=== PATIENT | female | born 1960 | race Caucasian/White ===

== ENCOUNTER 2022-06-12 08:49 | Emergency (ER) | payer OTHER, SELFPAY ==
[2022-06-12] VITALS (17 sets, daily range): BP systolic 109–129; BP diastolic 61–79; PULSE 62–78; RESP 18; TEMP 36.7; O2SAT 95–98; BMI 24.6
--- NOTE | 2022-06-12 09:35 | ED_ITS ---
HPI - General Adult General Date Seen: 06/12/22 Chief complaint: Arrhythmia/Palpitations Stated complaint: shortness of breath, fluttering heart Time Seen by Provider: 06/12/22 09:03 Source: patient Mode of arrival: ambulatory Limitations: no limitations History of Present Illness HPI narrative: Patient is a 62-year-old woman who presents for evaluation of a 5 day history of nonspecific heart fluttering and shortness of breath. She says that these symptoms are present concurrently, but are not present now. She says otherwise she feels like they been consistent all week, both during the day and at night. Not necessarily worsened with exertion, she denies chest pain. She says she feels like her heart just has been fluttery, not necessarily irregular, not fast. She says that it feels like it might be about to go fast but has not actually been fast. She says she has a history of nonspecific tachycardia so she knows what that feels like and she has not had anything like that. She says she has a history of ?tachycardia, not otherwise specified, and used to be on medication for it but not for quite some time. She does not recognize the terms atrial fibrillation, flutter, or SVT. She has had a stent placed previously. She denies fever or cough, no lower extremity swelling or pain. Now she is asymptomatic Related Data Home Medications Medication Instructions Recorded Confirmed aspirin 81 mg capsule 81 mg PO DAILY 06/12/22 06/12/22 atorvastatin 80 mg tablet 80 mg PO DAILY 06/12/22 06/12/22 cholecalciferol (vitamin D3) 50 50 mcg PO DAILY 06/12/22 06/12/22 mcg (2,000 unit) capsule (Vitamin D3) fluoxetine 20 mg capsule 60 mg PO DAILY 06/12/22 06/12/22 metoprolol tartrate 25 mg tablet 25 mg PO DAILY 06/12/22 06/12/22 Allergies Allergy/AdvReac Type Severity Reaction Status Date / Time amoxicillin [From Augmentin] Allergy Vomiting Verified 06/12/22 09:11 clavulanic acid Allergy Vomiting Verified 06/12/22 09:11 [From Augmentin] codeine Allergy Nausea Verified 06/12/22 09:11 Review of Systems Status of ROS: Reports: 10 or more systems reviewed and unremarkable except as noted in History and below [facility] Social History Smoking Status: Current every day smoker What tobacco products do you use: cigarettes Smoking packs per day: 0.5 Smoking cigarettes per day: 10.0 Do you use any of these nicotine containing products: None Second hand tobacco smoke exposure: No How often do you have a drink containing alcohol: 2-4 times a month How many standard drinks containing alcohol do you have on a typical day: 1 or 2 How often do you have six or more drinks on one occasion: Never AUDIT-C Alcohol total score: 2 Non-prescribed substance use: denies use Exam Narrative: Exam Narrative: Vital signs as noted above. In general, an alert, well-appearing patient. Head: Normocephalic, atraumatic. Eyes: Pupils are equal reactive. Extraocular movements are full. Conjunctivae are normal. ENT: Mucous membranes are moist. Throat is normal. Neck: Supple without lymphadenopathy. Heart: Regular rate and rhythm. No murmur or rub. Lungs: Clear bilaterally. No increased work of breathing, crackles or wheezes. Abdomen: Soft and nontender. No organomegaly. Extremities: Well perfused. No edema. No calf tenderness. Pulses intact. Neurologic: Patient is alert and oriented to person and place. Speech is fluent. Face is symmetric. Moves all extremities equally. Affect: Normal. Skin: Warm and dry. Well perfused. Const: Vital Signs, click to edit/add: Vital Signs - 24 hr 06/12/22 09:02 06/12/22 09:08 06/12/22 09:30 Temperature 98.1 F Pulse Rate 69 Pulse Rate [Pulse Oximeter] 72 Respiratory Rate 18 Blood Pressure Blood Pressure [Le ft Upper Arm] 129/79 Pulse Oximetry 96 96 96 Oxygen Delivery Me thod Room Air 06/12/22 09:32 06/12/22 10:00 06/12/22 10:02 Temperature Pulse Rate 78 66 71 Pulse Rate [Pulse Oximeter] Respiratory Rate Blood Pressure 119/69 126/69 Blood Pressure [Le ft Upper Arm] Pulse Oximetry 96 96 97 Oxygen Delivery Me thod 06/12/22 10:30 06/12/22 10:32 06/12/22 11:00 Temperature Pulse Rate 65 64 62 Pulse Rate [Pulse Oximeter] Respiratory Rate Blood Pressure 109/77 Blood Pressure [Le ft Upper Arm] Pulse Oximetry 95 97 96 Oxygen Delivery Me thod 06/12/22 11:02 06/12/22 11:36 06/12/22 11:37 Temperature Pulse Rate 64 65 62 Pulse Rate [Pulse Oximeter] Respiratory Rate Blood Pressure 125/66 114/63 Blood Pressure [Le ft Upper Arm] Pulse Oximetry 97 96 97 Oxygen Delivery Me thod 06/12/22 12:00 06/12/22 12:02 06/12/22 12:30 Temperature Pulse Rate 63 63 64 Pulse Rate [Pulse Oximeter] Respiratory Rate Blood Pressure 125/61 Blood Pressure [Le ft Upper Arm] Pulse Oximetry 97 96 97 Oxygen Delivery Me thod 06/12/22 12:32 06/12/22 12:52 Temperature 98.1 F Pulse Rate 65 Pulse Rate [Pulse Oximeter] 72 Respiratory Rate 18 Blood Pressure 120/74 Blood Pressure [Le ft Upper Arm] 129/79 Pulse Oximetry 98 Oxygen Delivery Me thod Course Course Hospital Course: On arrival, she was maintained on the monitor and oximetry. She had an EKG which shows a normal sinus rhythm, ventricular rate of 72 beats per minute. She has a QT corrected of 427 milliseconds. MS is normal at [address] segment changes. T-waves are normal. Right now, I do not see anything to suggest an arrhythmia or predisposition to arrhythmia. Will go ahead and check some blood work and keep her on the monitor. Patient was asymptomatic throughout her time in the ER. No a arrhythmias and no symptoms. Her labs were really unremarkable, white blood cell count was normal, hemoglobin 12.4. D-dimer was 0.38 so I did a chest x-ray which by my review was unremarkable. Final radiology report was read as no acute pathology. Electrolytes were entirely within normal limits, creatinine was 0.7. LFTs were normal, CRP was less than 0.5. BNP was 56. TSH was normal. COVID was negative. Point of care troponin was 0. She feels comfortable going home. I am going to set her up with a Holter him will see if she has any ectopy or arrhythmias at home. I would like her follow-up with her primary doctor next week for recheck and results of the Holter. If at any time she has severe symptoms, new symptoms such as chest pain or syncope, return to the emergency department. Vital Signs Vital signs: Initial Vital Signs Temperature 98.1 F 06/12/22 09:02 Temperature Source Temporal Artery Scan 06/12/22 09:02 Pulse Rate 72 06/12/22 09:02 Respiratory Rate 18 06/12/22 09:02 Blood Pressure 129/79 06/12/22 09:02 Blood Pressure Mean 95 06/12/22 09:02 Blood Pressure Position Semi-Fowlers 06/12/22 09:02 Pulse Oximetry 96 06/12/22 09:02 Oxygen Delivery Method 06/12/22 09:02 Vital Signs Temperature 98.1 F 06/12/22 09:02 Pulse Rate 72 06/12/22 09:02 Respiratory Rate 18 06/12/22 09:02 Blood Pressure 129/79 06/12/22 09:02 Pulse Oximetry 96 06/12/22 09:02 Oxygen Delivery Method 06/12/22 09:02 Temperature 98.1 F 06/12/22 12:52 Pulse Rate 72 06/12/22 12:52 Respiratory Rate 18 06/12/22 12:52 Blood Pressure 129/79 06/12/22 12:52 Pulse Oximetry 98 06/12/22 12:32 Oxygen Delivery Method 06/12/22 09:02 Medical Decision Making Lab Data Labs: Lab Results 06/12/22 06/12/22 06/12/22 Range/Units 09:35 09:35 09:45 WBC 7.52 (4.50-11.00) K/uL RBC 4.14 (4.00-5.20) m/uL Hgb 12.4 (12.0-16.0) gm/dL Hct 37.7 (33.0-51.0) % MCV 91 (80-100) fL MCH 30 (26-34) pg MCHC 33 (32-36) gm/dL RDW Coeff of Claus 12.9 (11.5-15.5) % Plt Count 405 (140-440) K/uL Neut % (Auto) 59.4 (42.0-72.0) % Lymph % (Auto) 31.5 (20-44) % [place] % (Auto) 6.0 (0.0-11.0) % Eos % (Auto) 2.5 (0.0-7.0) % Baso % (Auto) 0.5 (0.0-3.0) % Neut # (Auto) 4.46 (1.7-7.0) K/uL Lymph # (Auto) 2.37 (0.90-2.90) K/uL [place] # (Auto) 0.50 (0.00-0.90) K/UL Eos # (Auto) 0.19 (0.00-0.50) K/uL Baso # (Auto) 0.04 (0.00-0.30) K/uL D-Dimer Quant (PE/DVT) 0.38 (0.00-0.50) ug/ml Sodium (135-149) mmol/L Potassium (3.6-5.1) mmol/L Chloride (96-114) mmol/L Carbon Dioxide (20-32) mmol/L BUN (7-30) mg/dL Creatinine (0.5-1.5) mg/dL Estimated Creat Clear Estimated GFR ml/min Glucose (60-115) mg/dL Calcium (8.4-10.6) mg/dL Total Bilirubin (0.1-1.5) mg/dL Direct Bilirubin (0.0-0.5) mg/dL AST (12-35) U/L ALT (4-35) U/L Alkaline Phosphatase (40-150) U/L C-Reactive Protein (0.5-1.0) mg/dL NT-Pro-B Natriuret Pep pg/mL Total Protein (6.0-8.3) g/dL Albumin (3.3-5.0) g/dL TSH (0.270-4.200) uIU/mL SARS-CoV-2 (PCR) (Negative) POC Troponin I 0.00 L (0.01-0.04) ng/ml 06/12/22 06/12/22 06/12/22 Range/Units 09:45 09:45 09:45 WBC (4.50-11.00) K/uL RBC (4.00-5.20) m/uL Hgb (12.0-16.0) gm/dL Hct (33.0-51.0) % MCV (80-100) fL MCH (26-34) pg MCHC (32-36) gm/dL RDW Coeff of Claus (11.5-15.5) % Plt Count (140-440) K/uL Neut % (Auto) (42.0-72.0) % Lymph % (Auto) (20-44) % [place] % (Auto) (0.0-11.0) % Eos % (Auto) (0.0-7.0) % Baso % (Auto) (0.0-3.0) % Neut # (Auto) (1.7-7.0) K/uL Lymph # (Auto) (0.90-2.90) K/uL [place] # (Auto) (0.00-0.90) K/UL Eos # (Auto) (0.00-0.50) K/uL Baso # (Auto) (0.00-0.30) K/uL D-Dimer Quant (PE/DVT) (0.00-0.50) ug/ml Sodium 138 (135-149) mmol/L Potassium 4.1 (3.6-5.1) mmol/L Chloride 108 (96-114) mmol/L Carbon Dioxide 26 (20-32) mmol/L BUN 11 (7-30) mg/dL Creatinine 0.7 (0.5-1.5) mg/dL Estimated Creat Clear 44.02 Estimated GFR 98 ml/min Glucose 100 (60-115) mg/dL Calcium 8.9 (8.4-10.6) mg/dL Total Bilirubin 0.5 (0.1-1.5) mg/dL Direct Bilirubin 0.2 (0.0-0.5) mg/dL AST 27 (12-35) U/L ALT 25 (4-35) U/L Alkaline Phosphatase 74 (40-150) U/L C-Reactive Protein < 0.5 L (0.5-1.0) mg/dL NT-Pro-B Natriuret Pep 56 pg/mL Total Protein 6.5 (6.0-8.3) g/dL Albumin 3.9 (3.3-5.0) g/dL TSH 0.875 (0.270-4.200) uIU/mL SARS-CoV-2 (PCR) Negative SARS-CoV-2 (Negative) POC Troponin I (0.01-0.04) ng/ml Discharge Plan Discharge Clinical Impression: Shortness of breath, Palpitations Patient Disposition: Home, Self-Care Condition: Improved Instructions: Heart Palpitations (ED) Additional Instructions: Wear Holter monitor. Then primary care follow-up next week for recheck. If you have severe symptoms, new symptoms such as chest pain, fainting, return for re- evaluation. Prescriptions: No Action atorvastatin 80 mg tablet 80 mg PO DAILY cholecalciferol (vitamin D3) [Vitamin D3] 50 mcg (2,000 unit) capsule 50 mcg PO DAILY fluoxetine 20 mg capsule 60 mg PO DAILY metoprolol tartrate 25 mg tablet 25 mg PO DAILY aspirin 81 mg capsule 81 mg PO DAILY Stand Alone Forms: [employer] Info Instructions
[2022-06-12 09:51] LABS: Basophils Absolute Auto 0.04 K/uL (0.00-0.30); Basophils Percent Auto 0.5 % (0.0-3.0); Eosinophils Absolute Auto 0.19 K/uL (0.00-0.50); Eosinophils Percent Auto 2.5 % (0.0-7.0); Hematocrit 37.7 % (33.0-51.0); Hemoglobin* 12.4 gm/dL (12.0-16.0); Immature Granulocytes Abs Auto 0.01 K/uL (0.00-0.30); Immature Granulocytes Pct Auto 0.1 %; Lymphocytes Absolute Auto 2.37 K/uL (0.90-2.90); Lymphocytes Percent Auto 31.5 % (20-44); Mean Corpuscular HGB Conc 33 gm/dL (32-36); Mean Corpuscular Hemoglobin 30 pg (26-34); Mean Corpuscular Volume 91 fL (80-100); Neutrophils Absolute Auto 4.46 K/uL (1.7-7.0); Neutrophils Percent Auto 59.4 % (42.0-72.0); Platelet Count* 405 K/uL (140-440); RDW Coefficient of Variation % 12.9 % (11.5-15.5); Red Blood Count 4.14 m/uL (4.00-5.20); White Blood Count* 7.52 K/uL (4.50-11.00)
[2022-06-12 09:59] LABS: Slide Review Reflex No
[2022-06-12 10:16] LABS: Albumin* 3.9 g/dL (3.3-5.0); Chloride* 108 mmol/L (96-114); Sodium* 138 mmol/L (135-149)
[2022-06-12 10:17] LABS: Potassium* 4.1 mmol/L (3.6-5.1)
[2022-06-12 10:19] LABS: Creatinine* 0.7 mg/dL (0.5-1.5); D Dimer Quantitative* 0.38 ug/ml (0.00-0.50); Est. Creatinine Clearance* 44.02; Estimated Glomerular Filt Rate 98 ml/min
[2022-06-12 10:20] LABS: Alanine Aminotransferase* 25 U/L (4-35); Alkaline Phosphatase* 74 U/L (40-150); Aspartate Amino Transferase* 27 U/L (12-35); Bilirubin Direct* 0.2 mg/dL (0.0-0.5); Bilirubin Total* 0.5 mg/dL (0.1-1.5); Blood Urea Nitrogen* 11 mg/dL (7-30); Calcium* 8.9 mg/dL (8.4-10.6); Carbon Dioxide* 26 mmol/L (20-32); Glucose* 100 mg/dL (60-115); Total Protein* 6.5 g/dL (6.0-8.3)
[2022-06-12 10:24] LABS: C Reactive Protein* < 0.5 mg/dL (0.5-1.0)
[2022-06-12 10:28] LABS: SARS PCR* Negative SARS-CoV-2 (Negative)
[2022-06-12 10:38] LABS: NT Pro B Type NatriureticPept* 56 pg/mL
[2022-06-12 10:51] LABS: TSH With Reflex to FT4* 0.875 uIU/mL (0.270-4.200)
--- NOTE | 2022-06-12 11:02 | CRLHL7_ITS ---
For Patients: As a result of the Century Cures Act, medical imaging exams and procedure reports are released immediately into your electronic medical record. You may view this report before your referring provider. If you have questions, please contact your health care provider. INDICATION: Shortness of breath. COMPARISON: Two-view chest 04/10/2019 TECHNIQUE: Two-view chest. FINDINGS: Normal size cardiac silhouette. Clear lung garcia with no evidence of acute pneumonic infiltrates or CHF. No pneumothorax or pleural effusion. Osteoarthritis both shoulders with osteochondral loose bodies on the left . IMPRESSION: No acute pathology. Dictated by Yovany Araujo MD @ 06/12/2022 11:44:08 AM (Electronically Signed)
== END 2022-06-12 13:01 | disposition home or self-care (01) ==
PROVIDERS: Emergency Provider Emergency Medicine; PCP Family Medicine
DX: R06.02 Shortness of breath (principal); R00.2 Palpitations
CPT/HCPCS: 36415; 71046; 80048; 80076; 83880; 84443; 84484; 85025; 85379; 86140; 87635; 93005; 93225; 93226; 94761; 99284; 99285

== ENCOUNTER 2024-06-10 19:16 | Outpatient (CLI) | payer OTHER, SELFPAY | END 2024-06-10 19:17 | disposition home or self-care (01) | LOC: AMB 06-12 15:07 | PROVIDERS: PCP Family Medicine; Visit Provider Family Medicine | DX: S09.90XA Unspecified injury of head, initial encounter (principal); R41.82 Altered mental status, unspecified; W18.30XA Fall on same level, unspecified, initial encounter; Y92.000 Kitchen of unspecified non-institutional (private) residence as the place of occurrence of the external cause | CPT/HCPCS: A0425; A0427 ==

== ENCOUNTER 2024-06-10 19:41 | Emergency (ER) | payer OTHER, SELFPAY ==
--- OUTSIDE RECORDS SUMMARY | 2024-06-10 19:43 | XMS_ITS | Clinical Summary ---
Author Organization [facility] Address [address] [place] [id number] Care Team Providers Care Multi Share Program Coordinator Name Role Phone Clinic, No Pcp Or Primary Care Provider Unavaila ble Allergies Active Allergy Reactions Criticality Noted Date Comments Amoxicillin-Pot Clavulanate GI Upset,Intolerance-Can't Take 08/25/2007 Codeine GI Upset,Intolerance-Can't Take 08/25/2007 Medications aspirin (ECOTRIN) 81 mg enteric coated tabletIndications :Coronary artery disease, unspecified vessel or lesion type, unspecified whether angina present, unspecified whether [place] or transplanted heart TAKE ONE TABLET BY MOUTH EVERY DAY WITH A MEAL 90 Tablet 2 2 Active Vitamin D-3 50 mcg (2,000 unit) capsuleIndication s:Hyperlipidemia LDL goal <130 TAKE ONE CAPSULE BY MOUTH EVERY DAY 90 Capsule 3 Active nitroglycerin (NITROSTAT) 0.4 mg sublingual tabletIndications :Chest pain, unspecified type Place 1 Tablet (0.4 mg) under the tongue every 5 minutes if needed for Chest Pain. 30 Tablet 3 Active atorvastatin (LIPITOR) 80 mg tabletIndications :Coronary artery disease, unspecified vessel or lesion type, unspecified whether angina present, unspecified whether [place] or transplanted heart Take 1 Tablet (80 mg) by mouth at bedtime. 90 Tablet 3 4 Active FLUoxetine (PROZAC) 40 mg capsuleIndication s:Dysthymic disorder Take 1 Capsule (40 mg) by mouth every morning. 90 Capsule 3 4 Active omeprazole 20 mg tabletIndications :Gastroesophageal reflux disease, unspecified whether esophagitis present Take 1 Tablet (20 mg) by mouth once daily before a meal. 90 Tablet 3 4 Active varenicline (Chantix Continuing Month Nghia) 1 mg tabletIndications :Tobacco use disorder Take 1 mg by mouth two times daily with meals. Start after completing starter pack. 60 Tablet 1 4 Active varenicline (CHANTIX DOSEPAK) 0.5 mg (11)- 1 mg (42) tabletIndications :Tobacco use disorder Days 1-3 take 0.5mg once daily; Days 4-7 take 0.5mg twice daily; then increase to 1mg twice daily. Take with meals. 1 Packet 4 Active metoprolol succinate (TOPROL XL) 25 mg Sustained-Release tabletIndications :Coronary artery disease, unspecified vessel or lesion type, unspecified whether angina present, unspecified whether [place] or transplanted heart Take 1 Tablet (25 mg) by mouth once daily. 90 Tablet 3 4 Active Active Problems Problem Noted Date Diagnosed Date Pap smear for cervical cancer screening 08/06/19 23 Overview (08/05/2022): 06/2022 NIL/HPV Negative Plan: Routine Screening Adrenal nodule 07/08/2022 Coronary artery disease 04/24/2019 CAD (coronary artery disease) 04/18/2019 Overview (04/24/2019): SHERRILL to RCA. Brilinta for one year. Osteopenia 06/06/2013 Hyperlipidemia 06/02/2013 Vitamin D deficiency 06/02/2013 Tobacco use disorder 08/08/2009 Ganglion cyst 12/15/2007 Dysthymic disorder 08/25/2007 Resolved Problems Problem Noted Date Diagnosed Date Resolved Date Positive cardiac stress test 04/17/2019 04/24/2019 Periodontal disease 08/13/2011 05/03/19 19 Overview (08/13/2011): Will be having major dental work in September Excessive or frequent menstruation 08/25/2007 05/03/2018 Premenstrual tension syndromes 08/25/2007 05/03/2018 Immunizations Name Administration Dates Next Due COVID-19 vaccine ([employer]-J& J) JASON CLEMENT 06/29/2020 COVID-19 vaccine ([employer] NTech 30mcg/0.3mL) 12YO+ YOLANDA-SUCROSE PF, MDV 05/15/2021 Influenza A (H1N1), Rylee roy (Age >=3 Years) 02/25/2009 Influenza, IIV4 07/08/2022, 2,05/14/2020,2018 Pneumococcal Conj 20-valent (Prevnar 20) 07/08/2022 Tdap 05/25/2013 Family History Medical History Relation Name Comments Heart Disease Brother By pass, CHF Heart Disease Father 69 [place] Heart Disease Maternal Aunt Heart Disease Maternal Uncle Other Mother abdominal aneur ysm, did not from this Heart Disease Other total 6 siblin gs Heart Disease Paternal Grandfather Heart Disease Paternal Grandmother Heart attack Sister 1 Sd 3 stents Heart Disease Sister 2 Pat ? carotid esme ry blocked. abdominal anerysm ruled out Good Health Sister 3 flores Cancer-breast No Family History Cancer-ovarian No Family History Relation Name Status Comments Brother Father (Age 69) Maternal Aunt Maternal Uncle Mother (Age 97) Other Paternal Grandfather Paternal Grandmother Sister 1 Sd Sister 2 Pat Alive Sister 3 flores Alive Social History Tobacco Use Types Packs/Day Years Used Date Smoking Tobacco: Every Day Cigarettes 0.9 32.4 Started: 11/18/1983; Last attempted to quit: 11/17/2013 Smokeless Tobacco: Never Tobacco Cessation:Ready to Q uit: No; Counseling Given: Yes Alcohol Use Standard Drinks/Week Comments Yes 0 (1 standard drink = 0.6 oz pur e alcohol) 2 drinks per week PHQ-2 Answer Date Recorded PHQ-2 TOTAL SCORE 2 07/30/2023 Social Connections Answer Date Recorded Do you often feel lonely or isolated from those around you? 0 07/30/2023 Financial Resource Strain Answer Date R ecorded Difficulty of Paying Living Expenses 3 07/30/2023 Difficulty of Paying Living Expenses Not on file 07/30/2023 Food Insecurity Answer Date Recorded Do you worry your food will run out before you are able to buy more? 1 07/30/2023 Transportation Needs Answer Date Record ed Does lack of transportation keep you from medica l appointments? 1 07/30/2023 Does lack of transportation keep you from work, meetings or getting things that you need? 1 07/30/2023 Housing Stability Answer Date Recorded What is your housing situation today? 1 07/30/2023 Utilities Answer Date Recorded Do you have trouble paying f or utilities (for example, heat, electricity, water, phone)? 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 Not on file Not on file Not on file Obstetrics History Para Term AB IAB SAB Ectopic Multiple Livin g Live Births 2 2 2 2 Date Outcome GA Total Labor Labor/2nd/3rd Weight Sex Type Anes PTL Peggy A1 A5 Name Clin Term Term Last Filed Vital Signs Vital Sign Reading Time Taken Comments Blood Pressure 116/66 07/30/2023 2:32 PM CDT Pulse 72 07/30/2023 2:32 PM CDT Temperature 37.3 C (99.2 F) 12/23/2022 10:10 AM CDT Respiratory Rate 18 04/28/2021 9:17 AM GUEST ASSOCIATE Oxygen Saturation 95% 12/23/2022 10: 10 AM CDT Inhaled Oxygen Concentration - - Weight 59.3 kg (130 lb 12.8 oz) 07/30/2023 2:32 PM CDT Height 154.9 cm (5' 1) 12/23/2022 10:1 0 AM CDT Body Mass Index 24.71 12/23/2022 10:10 AM CDT Plan of Treatment Health Maintenance Due Date Last Done Comments HIV for age 15-65 1975 Colonoscopy through age [address] (for lung CA) ag e 50-80 2010 Zoster (shingles) series for age 50+ (1 of 2) 2010 RSV vaccine for adults or (1 - Risk 60-74 years 1-dose series) 2020 Mammogram for age 45-75 05/14/2021 05/14/19, 06/01/2013, 08/21/2010, Additional history exists Tetanus booster 05/25/2023 05/25/2013 COVID-19 vaccine series ( season) 2023 05/15/2021, 06/29/2020 Influenza for age 50-64 12/19/2023 07/09/19 23, 05/15/2021, 05/14/2020, Additional history exists BMI (ht and wt on same day) for age 18+ 12/24/2023 12/23/2022, 08/18/2022, 07/08/2022, Additional history exists Depression screening for age 12+ 07/29/2024 07/30/2023, 07/08/2022, 05/15/2021, Additional history exists Pap test for age 21-65 07/09/2027 , 07/08/2022, 01/29/2016, Additional history exists Lipids for age 45-75 07/29/2028 07/30/2023, 07/08/2022, 05/15/2021, Additional history exists Tdap Completed 05/25/2013 Hepatitis C screening for ag e 18-79 Completed 06/13/2014 Pneumococcal series for age 50+ Completed Pneumococcal series for age 6-49 Completed 07/09/19 23 Procedures Procedure Name Priority Date/Time Associated Diagnosis Comments LIPID PANEL W REFLEX MEASURED LDL Routine 07/30/2023 3:23 PM CDT Coronary artery disease, unspecified vessel or lesion type, unspecified whether angina present, unspecified whether [place] or transplanted heart HPV HIGH RISK Routine 07/08/2022 2:58 PM CDT Pap smear for cervical cancer screening XR MAMMO BILAT SCREENING Routine 05/14/2020 5:02 PM GUEST ASSOCIATE Encounter for screening mammogram for malignant neoplasm of breast ANTI HCV Routine 06/13/2014 9:02 AM GUEST ASSOCIATE Need for hepatitis C screening test from Last 3 Months or Most Recently Relevant to Health Maintenance Results * LIPID PANEL W REFLEX MEASURED LDL (07/30/2023 3:23 PM CDT) CHOLESTEROL,TOTAL 155 100 - 199 mg/dL 07/30/2023 8:56 PM CDT [facility] Comment: Cholesterol, Total Reference Ranges Desirable <200 mg/dL Borderline 200-239 mg/dL High >=240 mg/dL TRIGLYCERIDES 147 <150 mg/dL 07/30/2023 8:56 PM CDT [facility] HDL CHOLESTEROL 47 >40 mg/dL 8:56 PM CDT [facility] NON-HDL CHOLESTEROL 108 <145 mg/dl 07/30/2023 8:56 PM CDT [facility] CHOL/HDL RATIO 3.30 <4.50 07/30/2023 8:56 PM CDT [facility] LDL CHOLESTEROL 79 <=130 mg/dL 07/30/2023 8:56 PM CDT [facility] VLDL CHOLESTEROL 29 <=30 mg/dL 07/30/2023 8:56 PM CDT [facility] PROVIDER ORDERED STATUS RANDOM 07/30/2023 8:56 PM CDT [facility] Blood BLOOD SPECIMEN / Unknown Venipuncture / Unknown 07/30/2023 3:23 PM CDT 07/30/2023 3:23 PM CDT us Roxy Chávez DO CHEMISTRY Final Resu lt [facility] [address] [place] [address], * HPV HIGH RISK (07/08/2022 2:58 PM CDT) TYPE 16 Negative Negative 07/13/2022 1:47 PM CDT [facility] TYPE 18 Negative Negative 07/13/2022 1:47 PM CDT [facility] OTHER HIGH RISK TYPES Negative Negative 07/13/2022 1:47 PM CDT [facility] Other (Cervical) Non-Blood / Unknown 07/08/2022 2:58 PM CDT 07/10/2022 11:33 AM CDT Narrative [facility] - 07/13/2022 1:47 PM CDT HPV types 16, 18, 31, 33, 35, 39, 45, 51, 52, 56, 58, 59, 66 and 68 DNA were undetectable or below the pre-set threshold. Methodology: Malini Dilma 4800 HPV Test John Mann MD MICROBIOLOGY Final Re sult [facility] [address] [place] [address], [place] * XR MAMMO BILAT SCREENING (05/14/2020 5:02 PM GUEST ASSOCIATE) Anatomical Region Laterality Modality BREASTS, Breast Left, Breast Right Bilateral Mammography Impressions 05/15/2020 1:45 PM GUEST ASSOCIATE There is no radiographic evidence for malignancy. Recommend annual mammograms. A lay language report of this examination will be provided to the patient. MAMMOGRAM ASSESSMENT: ACR 1 Negative Narrative 05/15/2020 1:45 PM GUEST ASSOCIATE XR MAMMO BILAT SCREENING [[id number]] CLINICAL HISTORY: This is an asymptomatic 60 y.o. patient. INDICATION FOR EXAM: Mammogram Screening. TECHNIQUE: CC & MLO views were obtained. This digital study was evaluated with the assistance of Computer-Aided Detection. COMPARISON FILM: Yes 06/01/13 [facility] FINDINGS: The breasts have scattered areas of fibroglandular density. There are no dominant masses, suspicious micro calcifications or areas of architectural distortion. Both breasts are larger and with less dense breast tissue than before. John Mann MD MAMMO Final Re sult * ANTI HCV (06/13/2014 9:02 AM GUEST ASSOCIATE) HEPATITIS C ANTIBODY Non-Reacti ve Non-Reacti ve 06/13/2014 1:50 PM GUEST ASSOCIATE [facility] Blood specimen (specimen) BLOOD SPECIMEN / Unknown Venipuncture / Unknown 06/13/2014 9:02 AM GUEST ASSOCIATE 06/13/2014 9:02 AM GUEST ASSOCIATE Narrative [facility] - 06/13/2014 1:50 PM GUEST ASSOCIATE Antibodies to HCV not detected; does not exclude the possibility of exposure to HCV. us Afshan Trejo SIGNAL TOWER DIRECTOR SEND OUTS F inal Result [facility] [address] [place] [address], [place] from Last 3 Months or Most Recently Relevant to Health Maintenance Insurance [employer] Advance Directives * Full Code (Latest Code Status on File) Date Activated Date Inactivated Comments 04/17/2019 3:35 PM 04/19/2019 4:55 PM Care Teams Multi Share Program Coordinator Relationship Specialty Start Date End Date Clinic, No Pcp Or . PCP - General 06/15/22
[2024-06-10 19:48] VITALS: BP 113/56; PULSE 75; RESP 18; TEMP 36.2; O2SAT 95; BMI 25.8
[2024-06-10 19:54] VITALS: PULSE 68; RESP 15; O2SAT 95
[2024-06-10 20:00] VITALS: PULSE 76; RESP 17; O2SAT 97
--- NOTE | 2024-06-10 20:00 | ED.GENADULT ---
HPI - General Adult General Date Seen: 06/10/24 Chief complaint: Altered Mental Status Stated complaint: altered mental status Time Seen by Provider: 06/10/24 20:04 Source: patient, family and RN notes reviewed Mode of arrival: EMS Limitations: altered mental status History of Present Illness HPI narrative: Nancy is a 64-year-old female with a history of hyperlipidemia, stent placement in approximately 2019, frequent marijuana use who comes to the emergency room via EMS after having a fall at home. Nancy was noted to be home with her . He stated that he was watching TV and heard her fall. He went into the room immediately and patient was on the floor. He tried to help her up but she was unable to get up and seems somewhat confused. He did call the ambulance. While waiting he tried to get his to sit in the chair but she could not do it and stated that she was nauseated. She did not vomit. Here in the emergency room she has not been answering questions and this is very unusual for her according to her family. She is keeping her eyes closed. She will nod yes or no but otherwise not really engage in any interaction. Family states that she has had cold-like symptoms over the last 3-4 days. She has not had a fever or complained of any urinary symptoms. She has not had any previous head trauma. Patient does use tobacco daily. Does use alcohol often but they have not noticed any alcohol this week. She does use marijuana. Related Data Home Medications ?Medication ?Instructions ?Recorded ?Confirmed aspirin 81 mg capsule 81 mg PO DAILY 06/12/22 06/12/22 atorvastatin 80 mg tablet 80 mg PO DAILY 06/12/22 06/12/22 cholecalciferol (vitamin D3) 50 50 mcg PO DAILY 06/12/22 06/12/22 mcg (2,000 unit) capsule (Vitamin D3) fluoxetine 20 mg capsule 60 mg PO DAILY 06/12/22 06/12/22 metoprolol tartrate 25 mg tablet 25 mg PO DAILY 06/12/22 06/12/22 Allergies Allergy/AdvReac Type Severity Reaction Status Date / Time amoxicillin (From Augmentin) Allergy Vomiting Verified 06/10/24 19:50 clavulanic acid (From Allergy Vomiting Verified 06/10/24 19:50 Augmentin) codeine Allergy Nausea Verified 06/10/24 19:50 Review of Systems Status of ROS: Reports: unobtainable due to mental status [facility] Social History Smoking Status: Current every day smoker What tobacco products do you use: cigarettes Smoking packs per day: 0.5 Smoking cigarettes per day: 10.0 Do you use any of these nicotine containing products: None Second hand tobacco smoke exposure: No How often do you have a drink containing alcohol: 2-4 times a month How many standard drinks containing alcohol do you have on a typical day: 1 or 2 How often do you have six or more drinks on one occasion: Never AUDIT-C Alcohol total score: 2 Non-prescribed substance use: denies use Exam Narrative: Exam Narrative: Nancy is lying supine in room 5. Her eyes are closed and she is resistant to having me help her open them. Her head is atraumatic normocephalic. Pupils are equal and reactive. The 2nd attempt at opening her eyes shows that her eyes have been rolled up superiorly face is otherwise symmetrical. Lips are moist. Neck is supple with no lymphadenopathy. Heart with a regular rate and rhythm and lungs are clear bilaterally. Abdomen is soft nontender. Lower extremities without edema. I do lift her arm above her face x2 and drifts off to the side. I do scratch the bottom of her foot and she does jump up but keeps her eyes closed and then lays back down. Const: Vital Signs, click to edit/add: Vital Signs - 24 hr 06/10/24 19:48 06/10/24 19:54 06/10/24 20:00 Temperature 97.1 F L Pulse Rate 68 76 Pulse Rate [Right Pulse Oximeter] 75 Respiratory Rate 18 15 17 Blood Pressure [Ri ght Upper Arm] 113/56 L Pulse Oximetry 95 95 97 Oxygen Delivery Me thod Room Air 06/10/24 20:14 06/10/24 20:15 06/10/24 21:53 Temperature Pulse Rate 79 Pulse Rate [Right Pulse Oximeter] 71 Respiratory Rate 15 Blood Pressure [Ri ght Upper Arm] 101/60 Pulse Oximetry 98 96 Oxygen Delivery Me thod Documenting provider has reviewed patient's vital signs: yes Course Course ED Course: Differential diagnosis includes stroke, encephalopathy, alcohol intoxication, drug reaction, conversion disorder/pseudo-seizure, concussion, head injury. At this time given patient's reaction to the arm drop and stimulation to the foot I do not think we are dealing with a stroke. Will check EKG and troponin given her past history. Given the fall will check head and cervical spine CTs as well as chest x-ray. Will check COVID/influenza/RSV and urinalysis. IV has already been established and 500 mL normal saline have been given. Will also check a CBC comprehensive panel, CRP, drug screen. Reevaluation(s) Reevaluation #1: Patient noted to have been stimulated and woke up during catheter placement but then laid down again. Body reaction not consistent with stroke and at this time patient has tested positive for methamphetamines and benzodiazepines. She as well as marijuana. She does not have benzodiazepines listed as a routine medications. Given negative head CT, negative COVID influenza and leaning more toward drug reaction. Troponin was negative. Reevaluation #2: I do discuss with Nancy and her family the positive drug screen. They are laughing quite a bit regarding the positive methamphetamines and benzodiazepines. They state they do not understand how that could happen. At this time Nancy appears to be back to baseline. Vital Signs Vital signs: Initial Vital Signs Temperature 97.1 F L 06/10/24 19:48 Temperature Source Temporal Artery Scan 06/10/24 19:48 Pulse Rate 75 06/10/24 19:48 Pulse Rhythm Regular 06/10/24 19:48 Pulse Strength 3+ Normal 06/10/24 19:48 Respiratory Rate 18 06/10/24 19:48 Blood Pressure 113/56 L 06/10/24 19:48 Blood Pressure Mean 75 06/10/24 19:48 Blood Pressure Position Supine 06/10/24 19:48 Pulse Oximetry 95 06/10/24 19:48 Oxygen Delivery Method Room Air 06/10/24 19:48 Vital Signs Temperature 97.1 F L 06/10/24 19:48 Pulse Rate 75 06/10/24 19:48 Respiratory Rate 18 06/10/24 19:48 Blood Pressure 113/56 L 06/10/24 19:48 Pulse Oximetry 95 06/10/24 19:48 Oxygen Delivery Method Room Air 06/10/24 19:48 Temperature 97.1 F L 06/10/24 19:48 Pulse Rate 71 06/10/24 21:53 Respiratory Rate 15 06/10/24 20:15 Blood Pressure 101/60 06/10/24 21:53 Pulse Oximetry 96 06/10/24 20:15 Oxygen Delivery Method Room Air 06/10/24 19:48 Medical Decision Making MDM Narrative Medical decision making narrative: 1. Altered mentation-likely a combination of marijuana with benzodiazepines. Patient noted to be almost in a trip like state while she was here and possibly some conversion type behavior. Patient also tested positive for methamphetamines. Did state had a Benadryl earlier in the day as she has been having cold-like symptoms. Patient does use marijuana quite frequently. Has not had a new dealer. Head denies any other illicit substance use. Patient did have Benadryl earlier and initially due not note any pseudoephedrine described which could create a false positive. However, when I do inform family that certain cough medicines containing pseudoephedrine can cause this and they are thinking that maybe this was the cause. I do not have an explanation for the positive benzodiazepine. Patient is on fluoxetine and not sertraline which can cause a false positive. At this point patient is alert oriented. She states she is very thirsty. No evidence of encephalopathy and patient has tested negative on the triple swab. Further, alcohol is also negative. 2. History of stent placement-EKGs appear to be normal. Two sets of cardiac enzymes negative. 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 3. Disposition-home at this time. Return to the ER for worsening symptoms and as needed. Addendum: According to EMS patient initially hypotensive on scene. She has been normotensive in the ED. she had been given 500 mL of normal saline by EMS. Again, no evidence of arrhythmia during her stay. Medical Records Medical records reviewed: Yes I reviewed the patient's medical records Lab Data Lab results reviewed: Yes I reviewed the patient's lab results Labs: Lab Results 06/10/24 06/10/24 06/10/24 Range/Units 20:00 20:14 21:00 WBC 9.60 (4.50-11.00) K/uL RBC 3.83 L (4.00-5.20) m/uL Hgb 11.3 L (12.0-16.0) gm/dL Hct 35.4 (33.0-51.0) % MCV 92 (80-100) fL MCH 30 (26-34) pg MCHC 32 (32-36) gm/dL RDW Coeff of Claus 13.3 (11.5-15.5) % Plt Count 318 (140-440) K/uL Neut % (Auto) 61.0 (42.0-72.0) % Lymph % (Auto) 29.6 (20-44) % [place] % (Auto) 7.8 (0.0-11.0) % Eos % (Auto) 1.1 (0.0-7.0) % Baso % (Auto) 0.2 (0.0-3.0) % Neut # (Auto) 5.85 (1.7-7.0) K/uL Lymph # (Auto) 2.84 (0.90-2.90) K/uL [place] # (Auto) 0.70 (0.00-0.90) K/UL Eos # (Auto) 0.11 (0.00-0.50) K/uL Baso # (Auto) 0.02 (0.00-0.30) K/uL Abs Immat Gran (auto) 0.03 (0.00-0.30) K/uL Imm/Tot Granulo (auto) 0.3 % Sodium 137 (135-149) mmol/L Potassium 3.8 (3.6-5.1) mmol/L Chloride 105 (96-114) mmol/L Carbon Dioxide 23 (20-32) mmol/L Anion Gap 9 (7-15) mEq/L BUN 14 (7-30) mg/dL Creatinine 1.1 (0.5-1.5) mg/dL Estimated Creat Clear 50.24 Estimated GFR 56 ml/min Glucose 128 H (60-115) mg/dL Lactate 1.9 (0.5-1.9) mmol/L Calcium 8.5 (8.4-10.6) mg/dL Magnesium 1.8 (1.5-2.6) mg/dL Total Bilirubin 0.2 (0.1-1.5) mg/dL AST 23 (12-35) U/L ALT 19 (4-35) U/L Alkaline Phosphatase 67 (40-150) U/L C-Reactive Protein < 0.5 L (0.5-1.0) mg/dL Total Protein 5.9 L (6.0-8.3) g/dL Albumin 3.7 (3.3-5.0) g/dL Urine Color (Yellow) Urine Appearance (Clear) Urine pH (5.0-8.5) Ur Specific [place] (1.000-1.030) Urine Protein (Negative) Urine Glucose (UA) (Negative) Urine Ketones (Negative) Urine Blood (Negative) Urine Nitrite (Negative) Urine Bilirubin (Negative) Urine Urobilinogen (0.2-1.0) Ur Leukocyte Esterase (Negative) Urine RBC (0-2) Urine WBC (0-5) Ur Squamous Epith Cells (None-Few) Hyaline Casts (None-Few) Urine Opiates Screen (Negative) Ur Oxycodone Screen (Negative) Urine Methadone Screen (Negative) Ur Barbiturates Screen (Negative) U Tricyclic Antidepress (Negative) Ur Phencyclidine Scrn (Negative) Ur Amphetamines Screen (Negative) U Methamphetamines Scrn (Negative) U Benzodiazepines Scrn (Negative) Urine Cocaine Screen (Negative) U Marijuana (THC) Screen (Negative) Ur Drug Screen Comment Ethyl Alcohol < 0.00 L (0.01-0.03) % SARS-CoV-2 (PCR) Negative SARS-CoV-2 (Negative) Influenza Type A (PCR) Negative PCR FLU A (Negative) Influenza Type B (PCR) Negative PCR FLU B (Negative) RSV (PCR) Negative PCR RSV (Negative) Lab Acknowledgement POC Troponin I 0.00 L (0.01-0.04) ng/ml 06/10/24 06/10/24 06/10/24 Range/Units 21:04 22:42 22:55 WBC (4.50-11.00) K/uL RBC (4.00-5.20) m/uL Hgb (12.0-16.0) gm/dL Hct (33.0-51.0) % MCV (80-100) fL MCH (26-34) pg MCHC (32-36) gm/dL RDW Coeff of Claus (11.5-15.5) % Plt Count (140-440) K/uL Neut % (Auto) (42.0-72.0) % Lymph % (Auto) (20-44) % [place] % (Auto) (0.0-11.0) % Eos % (Auto) (0.0-7.0) % Baso % (Auto) (0.0-3.0) % Neut # (Auto) (1.7-7.0) K/uL Lymph # (Auto) (0.90-2.90) K/uL [place] # (Auto) (0.00-0.90) K/UL Eos # (Auto) (0.00-0.50) K/uL Baso # (Auto) (0.00-0.30) K/uL Abs Immat Gran (auto) (0.00-0.30) K/uL Imm/Tot Granulo (auto) % Sodium (135-149) mmol/L Potassium (3.6-5.1) mmol/L Chloride (96-114) mmol/L Carbon Dioxide (20-32) mmol/L Anion Gap (7-15) mEq/L BUN (7-30) mg/dL Creatinine (0.5-1.5) mg/dL Estimated Creat Clear Estimated GFR ml/min Glucose (60-115) mg/dL Lactate (0.5-1.9) mmol/L Calcium (8.4-10.6) mg/dL Magnesium (1.5-2.6) mg/dL Total Bilirubin (0.1-1.5) mg/dL AST (12-35) U/L ALT (4-35) U/L Alkaline Phosphatase (40-150) U/L C-Reactive Protein (0.5-1.0) mg/dL Total Protein (6.0-8.3) g/dL Albumin (3.3-5.0) g/dL Urine Color Yellow (Yellow) Urine Appearance Clear (Clear) Urine pH 5.5 (5.0-8.5) Ur Specific [place] 1.015 (1.000-1.030) Urine Protein Negative (Negative) Urine Glucose (UA) Negative (Negative) Urine Ketones Negative (Negative) Urine Blood Negative (Negative) Urine Nitrite Negative (Negative) Urine Bilirubin Negative (Negative) Urine Urobilinogen 0.2 (0.2-1.0) Ur Leukocyte Esterase Negative (Negative) Urine RBC 0-2 (0-2) Urine WBC 2-5 (0-5) Ur Squamous Epith Cells Few (None-Few) Hyaline Casts Moderate A (None-Few) Urine Opiates Screen Negative (Negative) Ur Oxycodone Screen Negative (Negative) Urine Methadone Screen Negative (Negative) Ur Barbiturates Screen Negative (Negative) U Tricyclic Antidepress Negative (Negative) Ur Phencyclidine Scrn Negative (Negative) Ur Amphetamines Screen Negative (Negative) U Methamphetamines Scrn POSITIVE A (Negative) U Benzodiazepines Scrn POSITIVE A (Negative) Urine Cocaine Screen Negative (Negative) U Marijuana (THC) Screen POSITIVE A (Negative) Ur Drug Screen Comment See Note Ethyl Alcohol (0.01-0.03) % SARS-CoV-2 (PCR) (Negative) Influenza Type A (PCR) (Negative) Influenza Type B (PCR) (Negative) RSV (PCR) (Negative) Lab Acknowledgement Test Added POC Troponin I 0.00 L (0.01-0.04) ng/ml Imaging Data Chest x-ray: Attestation: I have reviewed the pertinent imaging results. My impression: Questionable increased perihilar markings. Radiologist's impression: Cardiovascular/Mediastinum: Normal heart size. Unremarkable. Lungs: No focal consolidation. Airways: Trachea remains midline. Pleura: No pleural effusions or pneumothorax. Bones: No acute osseous abnormalities. Chronic appearing osteochondral loose bodies near the left shoulder joint. Upper abdomen: Unremarkable. IMPRESSION: No acute cardiopulmonary process. CT scan - head: Attestation: I have reviewed the pertinent imaging results. My impression: I do not note any acute findings Radiologist's impression: Brain parenchyma: Normal packer-white matter differentiation. No acute intraparenchymal hemorrhage. No mass effect or midline shift. Atherosclerotic intracranial calcifications. Extra-axial spaces: No extra-axial collection. Ventricular system: Unremarkable for age. Paranasal sinuses and mastoid air cells: Mild mucosal thickening of the maxillary sinuses. Orbits: Unremarkable. Bones: No calvarial fracture. Impression: No acute intracranial abnormality identified. Cervical spine CT: Attestation: I have reviewed the pertinent imaging results. My impression: No evidence of acute fracture Radiologist's impression: Vertebral alignment: Straightening of the cervical lordosis. 2 mm anterolisthesis of C2 on C3. 3 mm anterolisthesis of C3 on C4. Trace anterolisthesis of C7 on T1 and T1 on T2. Vertebrae: Vertebral body heights are maintained. No acute fracture. No suspicious osseous lesion. Multilevel degenerative disc disease and facet arthropathy, which is most pronounced at C4-C6. Severe facet arthropathy on the right from C2-C4 Extraspinal findings: Atherosclerotic calcifications at the carotid bifurcations. Normal thyroid. Visualized lung apices are clear. IMPRESSION: 1. Straightening of the cervical lordosis with upper cervical anterolisthesis, likely due to facet arthropathy. No acute cervical spine fracture identified. 2. Multilevel cervical spondylosi ECG Data Attestation: I personally reviewed and interpreted this ECG as follows: Interpretation: EKG 1. By my read shows sinus rhythm at a rate of 72. Wandering baseline is noted and I was told patient was not very cooperative with the EKG. Second EKG shows sinus rhythm at a rate of [address] or T-wave changes. QT and NH intervals within normal limits. Discharge Plan Discharge Clinical Impression: Altered mental status, Positive urine drug screen Patient Disposition: Home, Self-Care Condition: Improved Instructions: Altered Mental Status (ED) Additional Instructions: Rest and push fluids. Get up from sitting or lying down position very slowly. Return to the emergency room as needed. Activity Level: No Restrictions Discharge Diet: Regular Prescriptions: No Action atorvastatin 80 mg tablet 80 mg PO DAILY cholecalciferol (vitamin D3) [Vitamin D3] 50 mcg (2,000 unit) capsule 50 mcg PO DAILY fluoxetine 20 mg capsule 60 mg PO DAILY metoprolol tartrate 25 mg tablet 25 mg PO DAILY aspirin 81 mg capsule 81 mg PO DAILY Follow Up/Referrals: John Mann MD [Primary Care Provider] - Stand Alone Forms: [employer] Info Instructions
[2024-06-10 20:14] VITALS: O2SAT 98
--- NOTE | 2024-06-10 20:14 | CRLHL7_ITS ---
For Patients: As a result of the Cures Act, medical imaging exams and procedure reports are released immediately into your electronic medical record. You may view this report before your referring provider. If you have questions, please contact your health care provider. INDICATION: Altered mental status. TECHNIQUE: Chest radiograph, 1 view. COMPARISON: None. FINDINGS: Cardiovascular/Mediastinum: Normal heart size. Unremarkable. Lungs: No focal consolidation. Airways: Trachea remains midline. Pleura: No pleural effusions or pneumothorax. Bones: No acute osseous abnormalities. Chronic appearing osteochondral loose bodies near the left shoulder joint. Upper abdomen: Unremarkable. IMPRESSION: No acute cardiopulmonary process. Dictated by Morgan Vidal MD @ 06/10/2024 8:56:18 PM (Electronically Signed)
--- NOTE | 2024-06-10 20:14 | CRLHL7_ITS ---
For Patients: As a result of the Century Cures Act, medical imaging exams and procedure reports are released immediately into your electronic medical record. You may view this report before your referring provider. If you have questions, please contact your health care provider. INDICATION: Fall. TECHNIQUE: CT of the cervical spine without contrast. COMPARISON: Same-day head CT. FINDINGS: Vertebral alignment: Straightening of the cervical lordosis. 2 mm anterolisthesis of C2 on C3. 3 mm anterolisthesis of C3 on C4. Trace anterolisthesis of C7 on T1 and T1 on T2. Vertebrae: Vertebral body heights are maintained. No acute fracture. No suspicious osseous lesion. Multilevel degenerative disc disease and facet arthropathy, which is most pronounced at C4-C6. Severe facet arthropathy on the right from C2-C4 Extraspinal findings: Atherosclerotic calcifications at the carotid bifurcations. Normal thyroid. Visualized lung apices are clear. IMPRESSION: 1. Straightening of the cervical lordosis with upper cervical anterolisthesis, likely due to facet arthropathy. No acute cervical spine fracture identified. 2. Multilevel cervical spondylosis. Please note that all CT scans at this facility use dose modulation, iterative reconstruction, and/or weight-based dosing when appropriate to reduce radiation dose to as low as reasonably achievable. Dictated by Fidelina Tran MD @ 06/10/2024 9:05:51 PM (Electronically Signed)
--- NOTE | 2024-06-10 20:14 | CRLHL7_ITS ---
For Patients: As a result of the Century Cures Act, medical imaging exams and procedure reports are released immediately into your electronic medical record. You may view this report before your referring provider. If you have questions, please contact your health care provider. Indication: Fall. Technique: Noncontrast CT of head was performed. Comparison: Same day cervical spine CT. Findings: Brain parenchyma: Normal packer-white matter differentiation. No acute intraparenchymal hemorrhage. No mass effect or midline shift. Atherosclerotic intracranial calcifications. Extra-axial spaces: No extra-axial collection. Ventricular system: Unremarkable for age. Paranasal sinuses and mastoid air cells: Mild mucosal thickening of the maxillary sinuses. Orbits: Unremarkable. Bones: No calvarial fracture. Impression: No acute intracranial abnormality identified. Please note that all CT scans at this facility use dose modulation, iterative reconstruction, and/or weight-based dosing when appropriate to reduce radiation dose to as low as reasonably achievable. Dictated by Fidelina Tran MD @ 06/10/2024 9:00:13 PM (Electronically Signed)
[2024-06-10 20:15] VITALS: PULSE 79; RESP 15; O2SAT 96
--- OUTSIDE RECORDS SUMMARY | 2024-06-10 20:50 | XMS_ITS | Clinical Summary ---
Author Organization [facility] Address [address] [place] [id number] Care Team Providers Care Meat Lugger Name Role Phone Clinic, No Pcp Or Primary Care Provider Unavaila ble Allergies Active Allergy Reactions Criticality Noted Date Comments Amoxicillin-Pot Clavulanate GI Upset,Intolerance-Can't Take 08/25/2007 Codeine GI Upset,Intolerance-Can't Take 08/25/2007 Medications aspirin (ECOTRIN) 81 mg enteric coated tabletIndications :Coronary artery disease, unspecified vessel or lesion type, unspecified whether angina present, unspecified whether [place] or transplanted heart TAKE ONE TABLET BY [...] type, unspecified whether angina present, unspecified whether [place] or transplanted heart Take 1 Tablet (80 [...] type, unspecified whether angina present, unspecified whether [place] or transplanted heart Take 1 Tablet (25 [...] ([place]-[facility] [facility]) JASON CLEMENT 06/29/2020 COVID-19 vaccine ([employer] Textbook Time[employer] NTech 30mcg/0.3mL) 12YO+ YOLANDA-SUCROSE PF, MDV 05/15/2021 Influenza A (H1N1), Rylee roy (Age >=3 Years) 02/25/2009 Influenza, IIV4 07/08/2022, 2,05/14/2020,2018 Pneumococcal Conj 20-valent (Prevnar 20) 07/08/2022 Tdap 05/25/2013 Family History Medical History Relation Name Comments Heart Disease Brother By pass, CHF Heart Disease Father 69 [place] Heart Disease Maternal Aunt Heart Disease Maternal [...] on file Legal Sex Female 6:09 AM [employer] Gender Identity Not on file Sexual Orientation Not on file 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 Not on file Not [...] CDT Respiratory Rate 18 04/28/2021 9:17 AM [employer] Oxygen Saturation 95% 12/23/2022 10: 10 AM [...] type, unspecified whether angina present, unspecified whether [place] or transplanted heart HPV HIGH RISK Routine 07/08/2022 2:58 PM CDT Pap smear for cervical cancer screening XR MAMMO BILAT SCREENING Routine 05/14/2020 5:02 PM [employer] Encounter for screening mammogram for malignant neoplasm of breast ANTI HCV Routine 06/13/2014 9:02 AM [employer] Need for hepatitis C screening test from Last 3 Months or Most Recently Relevant to Health Maintenance Results * LIPID PANEL W REFLEX MEASURED LDL (07/30/2023 3:23 PM CDT) CHOLESTEROL,TOTAL 155 100 - 199 mg/dL 07/30/2023 8:56 PM CDT [facility] [employer] [facility] Comment: Cholesterol, Total Reference Ranges Desirable <200 mg/dL Borderline 200-239 mg/dL High >=240 mg/dL TRIGLYCERIDES 147 <150 mg/dL 07/30/2023 8:56 PM CDT [facility] HDL CHOLESTEROL 47 >40 mg/dL 8:56 PM CDT [facility] NON-HDL CHOLESTEROL 108 <145 mg/dl 07/30/2023 8:56 PM CDT [facility] CHOL/HDL RATIO 3.30 <4.50 07/30/2023 8:56 PM CDT [facility] LDL CHOLESTEROL 79 <=130 mg/dL 07/30/2023 8:56 PM CDT [facility] VLDL CHOLESTEROL 29 <=30 mg/dL 07/30/2023 8:56 PM CDT [facility] PROVIDER ORDERED STATUS RANDOM 07/30/2023 8:56 PM CDT [facility] Blood BLOOD SPECIMEN / Unknown Venipuncture / Unknown 07/30/2023 3:23 PM CDT 07/30/2023 3:23 PM CDT us Roxy Chávez DO CHEMISTRY Final Resu lt [facility] [address] [place] [address], * HPV HIGH RISK (07/08/2022 2:58 PM CDT) TYPE 16 Negative Negative 07/13/2022 1:47 PM CDT [facility] TYPE 18 Negative Negative 07/13/2022 1:47 PM CDT [facility] OTHER HIGH RISK TYPES Negative Negative 07/13/2022 1:47 PM CDT [facility] Other (Cervical) Non-Blood / Unknown 07/08/2022 2:58 PM CDT 07/10/2022 11:33 AM CDT Narrative [facility] - 07/13/2022 1:47 PM CDT HPV types 16, 18, 31, 33, 35, 39, 45, 51, 52, 56, 58, 59, 66 and 68 DNA were undetectable or below the pre-set threshold. Methodology: Malini Dilma 4800 HPV Test John Mann MD MICROBIOLOGY Final Re sult [facility] [address] [place] [address], [place] * XR MAMMO BILAT SCREENING (05/14/2020 5:02 PM [employer]) Anatomical Region Laterality Modality BREASTS, Breast Left, Breast Right Bilateral Mammography Impressions 05/15/2020 1:45 PM [employer] There is no radiographic evidence for malignancy. Recommend annual mammograms. A lay language report of this examination will be provided to the patient. MAMMOGRAM ASSESSMENT: ACR 1 Negative Narrative 05/15/2020 1:45 PM [employer] XR MAMMO BILAT SCREENING [[id number]] CLINICAL HISTORY: This is an asymptomatic 60 y.o. patient. INDICATION FOR EXAM: Mammogram Screening. TECHNIQUE: CC & MLO views were obtained. This digital study was evaluated with the assistance of Computer-Aided Detection. COMPARISON FILM: Yes 06/01/13 [facility] 07/23/10 [facility] FINDINGS: The breasts have scattered areas of fibroglandular density. There are no dominant masses, suspicious micro calcifications or areas of architectural distortion. Both breasts are larger and with less dense breast tissue than before. John Mann MD MAMMO Final Re sult * ANTI HCV (06/13/2014 9:02 AM [employer]) HEPATITIS C ANTIBODY Non-Reacti ve Non-Reacti ve 06/13/2014 1:50 PM [employer] [facility] Blood specimen (specimen) BLOOD SPECIMEN / Unknown Venipuncture / Unknown 06/13/2014 9:02 AM [employer] 06/13/2014 9:02 AM [employer] Narrative [facility] - 06/13/2014 1:50 PM [employer] Antibodies to HCV not detected; does not exclude the possibility of exposure to HCV. us Afshan Trejo HYDROELECT[employer]IC SYSTEMS TECHNICIAN SEND OUTS F inal Result [facility] [address] [place] [address], [place] from Last 3 Months or Most Recently Relevant to Health Maintenance Insurance [employer] Advance Directives * Full Code (Latest Code Status on File) Date Activated Date Inactivated Comments 04/17/2019 3:35 PM 04/19/2019 4:55 PM Care Teams Meat Lugger Relationship Specialty Start Date End Date Clinic, No Pcp Or . PCP - General 06/15/22
[2024-06-10 20:57] LABS: PCR FLU A Negative PCR FLU A (Negative); PCR FLU B Negative PCR FLU B (Negative); PCR RSV Negative PCR RSV (Negative); SARS PCR* Negative SARS-CoV-2 (Negative)
[2024-06-10 21:07] LABS: Lactate Sepsis w/Reflex* 1.9 mmol/L (0.5-1.9)
[2024-06-10 21:08] LABS: Basophils Absolute Auto 0.02 K/uL (0.00-0.30); Basophils Percent Auto 0.2 % (0.0-3.0); Eosinophils Absolute Auto 0.11 K/uL (0.00-0.50); Eosinophils Percent Auto 1.1 % (0.0-7.0); Hematocrit 35.4 % (33.0-51.0); Hemoglobin* 11.3 gm/dL (12.0-16.0); Immature Granulocytes Abs Auto 0.03 K/uL (0.00-0.30); Immature Granulocytes Pct Auto 0.3 %; Lymphocytes Absolute Auto 2.84 K/uL (0.90-2.90); Lymphocytes Percent Auto 29.6 % (20-44); Mean Corpuscular HGB Conc 32 gm/dL (32-36); Mean Corpuscular Hemoglobin 30 pg (26-34); Mean Corpuscular Volume 92 fL (80-100); Monocytes Percent Auto 7.8 % (0.0-11.0); Neutrophils Absolute Auto 5.85 K/uL (1.7-7.0); Platelet Count* 318 K/uL (140-440); RDW Coefficient of Variation % 13.3 % (11.5-15.5); Red Blood Count 3.83 m/uL (4.00-5.20)
[2024-06-10 21:09] LABS: Slide Review Reflex No
[2024-06-10 21:14] LABS: Appearance Urine Clear (Clear); Bilirubin Urine Negative (Negative); Blood Urine Negative (Negative); Color Urine Yellow (Yellow); Glucose Urine Negative (Negative); Ketones Urine Negative (Negative); Leukocyte Esterase Urine Negative (Negative); Nitrite Urine Negative (Negative); Protein Urine Negative (Negative); Specific Gravity Urine 1.015 (1.000-1.030); Urobilinogen Urine 0.2 (0.2-1.0); pH Urine 5.5 (5.0-8.5)
[2024-06-10 21:24] LABS: Amphetamine Screen Urine Negative (Negative); Barbiturate Screen Urine Negative (Negative); Benzodiazepines Screen Urine POSITIVE (Negative); Cannabinoid Screen Urine POSITIVE (Negative); Cocaine Screen Urine Negative (Negative); Methadone Screen Urine Negative (Negative); Methamphetamines Screen Urine POSITIVE (Negative); Opiate Screen Urine Negative (Negative); Oxycodone Screen Urine Negative (Negative); Phencyclidine Screen Urine Negative (Negative); Tricyclic Antidepressant Urine Negative (Negative)
[2024-06-10 21:28] LABS: Albumin* 3.7 g/dL (3.3-5.0); Chloride* 105 mmol/L (96-114); Potassium* 3.8 mmol/L (3.6-5.1); Sodium* 137 mmol/L (135-149)
[2024-06-10 21:30] LABS: Bilirubin Total* 0.2 mg/dL (0.1-1.5); Creatinine* 1.1 mg/dL (0.5-1.5); Est. Creatinine Clearance* 50.24; Estimated Glomerular Filt Rate 56 ml/min
[2024-06-10 21:31] LABS: Alanine Aminotransferase* 19 U/L (4-35); Alkaline Phosphatase* 67 U/L (40-150); Anion Gap 9 mEq/L (7-15); Aspartate Amino Transferase* 23 U/L (12-35); Blood Urea Nitrogen* 14 mg/dL (7-30); Calcium* 8.5 mg/dL (8.4-10.6); Carbon Dioxide* 23 mmol/L (20-32); Glucose* 128 mg/dL (60-115); Total Protein* 5.9 g/dL (6.0-8.3)
[2024-06-10 21:32] LABS: Ethanol* < 0.00 % (0.01-0.03)
[2024-06-10 21:40] LABS: RBC Urine 0-2 (0-2)
[2024-06-10 21:41] LABS: Hyaline Casts Urine Moderate (None-Few); Squamous Epithelial Cell Urine Few (None-Few)
[2024-06-10 21:53] VITALS: BP 101/60; PULSE 71
[2024-06-10 21:53] LABS: C Reactive Protein* < 0.5 mg/dL (0.5-1.0)
[2024-06-10 23:25] LABS: Magnesium* 1.8 mg/dL (1.5-2.6)
== END 2024-06-10 23:47 | disposition home or self-care (01) ==
PROVIDERS: Emergency Provider Family Medicine; PCP Family Medicine
DX: R41.82 Altered mental status, unspecified (principal); T43.655A Adverse effect of methamphetamines, initial encounter
CPT/HCPCS: 36415; 70450; 71045; 72125; 80053; 80306; 81001; 82077; 83605; 83735; 84484; 85025; 86140; 87040; 87631; 93005; 94761; 99284; 99285